=== PATIENT | male | born 1980 | race Caucasian/White ===

== ENCOUNTER → 2020-11-17 09:43 | Outpatient (CLI) | payer OTHER, SELFPAY ==
--- NOTE | ~2020-11-17 | XR_ITS ---
EXAMINATION: XR chest 2V EXAM DATE: 11/17/2020 10:06 INDICATION: R06.00 - Dyspnea X 2 months. TECHNIQUE: Frontal and lateral projections of the chest obtained and reviewed. There is no prior adriana dy for comparison. FINDINGS: The lungs are clear. There are no pleural effusions. The cardiomediastinal silhouette is within normal limits. There is no pneumothorax suspected. The bones and soft tissues are unremarkab le. IMPRESSION: Unremarkable chest x-ray exam. Reviewed, dictated and finalized at location A.
== END ==
PROVIDERS: PCP Family Medicine; Visit Provider Family Medicine
DX: R06.00 Dyspnea, unspecified (principal)
CPT/HCPCS: 71046

== ENCOUNTER 2021-06-08 07:54 | Outpatient (CLI) | payer OTHER, SELFPAY ==
--- NOTE | ~2021-06-08 | NM_ITS ---
EXAMINATION: NM stress w perf spect multi DATE: 06/08/2021 12:01 INDICATION: Dyspnea TECHNIQUE: Rest images were obtained following intravenous administration of 9.84 mCi Tc99m tetrofosm in (Dish.fmview). The patient performed an exercise activity. At peak exercise, 30.4 mCi Tc99m tetrofosmi n (Myoview) was administered intravenously, and stress images were obtained in supine position. Addit ional repeated post stress images were obtained in the prone position. Data was reconstructed into sh ort axis and horizontal and vertical long axis SPECT images. Gated SPECT images were also obtained. COMPARISON: None. FINDINGS: There is normal left ventricular perfusion without definite evidence of reversible or fixed perfusion abnormality to suggest ischemia or infarction. Attenuation artifact on the supine rest and stress im ages primarily along the anterior and anterolateral montemayor and to lesser degree along the inferior wal l normalize on the prone post stress imaging or there are no definite perfusion defects. There is mil d left ventricular enlargement with calculated end-diastolic volume of 178 mL. Normal left ventricula r wall motion with the decreased left ventricular ejection fraction measuring 48%. IMPRESSION: 1. Normal myocardial perfusion at rest and during stress. 2. Mild left ventricular enlargement with mild decreased left ventricular ejection fraction measuring 48%. Reviewed, dictated and finalized at location A. OPHYSIOLOGIST IMPRESSION: 1. Normal myocardial perfusion at rest and during stress. 2. Mild left ventricular enlargement with mild decreased left ventricular eject ion fraction measuring 48%.
--- NOTE | 2021-06-08 08:30 | ECHO_ITS ---
Patient Info Name: Dominic Macdonald Age: 41 years : 1980 Gender: Male Ht: 73 in Wt: 288 lbs BSA: 2.64 m2 HR: 84 bpm BP: 188 / 96 mmHg Technical Quality: Good Exam Date: 06/08/2021 9:05 AM Exam Location: [facility] Patient Status: Outpatient Admit Date: 06/08/2021 Staff Ordering Physician: Jun Wyatt APRN Relay Repairer: Meaghan Casas RDCS Attending Provider: Jun Wyatt APRN Referring Physician: Edmundo HEWITT; Exam Type: CA echo doppler color flow Study Info Indications R06.00 - Dyspnea, unspecified Complete two-dimensional, color flow and Doppler transthoracic echocardiogram is performed. Summary 1. Complete two-dimensional, color flow and Doppler transthoracic echocardiogram is performed. 2. Left ventricular chamber dimension is normal. 3. Left ventricular systolic function is preserved, estimated at 50-55%. 4. The left ventricular diastolic function is normal. 5. E/e' 8 is minimally elevated. 6. Global longitudinal strain is abnormal at -15.6%. 7. No pulmonary hypertension, estimated pulmonary arterial systolic pressure is 24 mmHg. Left Ventricle E/e' 8 is minimally elevated. Global longitudinal strain is abnormal at -15.6%. Left ventricular systolic function is preserved, estimated at 50-55%. Left ventricular chamber dimension is normal. The left ventricular diastolic function is normal. Right Ventricle Right ventricular chamber dimension is not well visualized. Left Atria Left atrial chamber dimension is normal. Right Atria Right atrial chamber dimension is normal. Aortic Valve The aortic valve is trileaflet. There is no aortic valve stenosis. There is no aortic valve regurgitation. Pulmonic Valve There is no pulmonic regurgitation. Mitral Valve There is no mitral valve stenosis. There is no mitral valve regurgitation. Tricuspid Valve There is no tricuspid valve regurgitation. No pulmonary hypertension, estimated pulmonary arterial systolic pressure is 24 mmHg. Pericardium/Pleural There is no pericardial effusion. Inferior Vena Cava Normal inferior vena cava with >50% collapse upon inspiration consistent with normal right atrial pressure, 5 mmHg. Aorta The aortic root size at the sinus of Valsalva is normal. Left Ventricular Outflow Tract Name Value Normal LVOT 2D LVOT Diameter 2.3 cm LVOT Doppler LVOT Peak Gradient 4 mmHg LVOT Mean Gradient 2 mmHg LVOT VTI 18 cm LVOT VTI/AV VTI Ratio 0.8 LVOT Stroke Volume 73 ml LVOT CO 5.5 l/min LVOT CI 2.1 l/min/m2 Pulmonic Valve Name Value Normal RVOT Doppler RVOT Peak Gradient 2 mmHg PV Dop
--- NOTE | 2021-06-08 08:30 | EST_ITS ---
Patient Info Name: Dominic Macdonald Age: 41 years : 1980 Gender: Male Ht: 73 in Wt: 296 lbs BSA: 2.68 m2 HR: 84 bpm BP: 131 / 78 mmHg Heart Rhythm: Sinus Rhythm Exam Date: 06/08/2021 10:54 AM Exam Location: [facility] Patient Status: Outpatient Admit Date: 06/08/2021 Staff Ordering Physician: Jun Wyatt APRN Attending Provider: Jun Wyatt APRN Exercise Technologist: Dalila Guerra CT Exercise Physician: Crow Sánchez DO Exam Type: CA stress test treadmill w NM Study Info Indications R06.02 - Shortness of breath A nuclear stress test was performed. Summary 1. 1. Negative Ryan exercise stress test for ischemic ST changes by ECG criteria. However, patient achieved only 78% MPHR for age group which reduces sensitivity of the test. 2. 2. Reduced functional capacity, achieving 10 METs of workload. 3. 3. Appropriate HR response to exercise. 4. 4. Appropriate HR recovery at 1 minute post exercise. 5. 5. Nuclear scan to follow and will be reported separately. Please correlate with it. 6. 6. Patient informed of the above results. Protocol: Ryan Stress ECG Details Stage: REST Duration (min): 1 min : 59 sec Speed (mph): 0.0 Grade (%): 0 HR (bpm): 82 SBP (mmHg): 131 DBP (mmHg): 78 METS: --- Stage: REST Duration (min): 6 min : 32 sec Speed (mph): 0.0 Grade (%): 0 HR (bpm): 87 SBP (mmHg): 131 DBP (mmHg): 78 METS: --- Stage: STAGE 1 Duration (min): 1 min : 0 sec Speed (mph): 1.7 Grade (%): 10 HR (bpm): 101 SBP (mmHg): 131 DBP (mmHg): 78 METS: --- Stage: STAGE 1 Duration (min): 2 min : 0 sec Speed (mph): 1.7 Grade (%): 10 HR (bpm): 105 SBP (mmHg): 131 DBP (mmHg): 78 METS: --- Stage: STAGE 1 Duration (min): 3 min : 0 sec Speed (mph): 1.7 Grade (%): 10 HR (bpm): 106 SBP (mmHg): 181 DBP (mmHg): 82 METS: --- Stage: STAGE 2 Duration (min): 1 min : 0 sec Speed (mph): 2.5 Grade (%): 12 HR (bpm): 116 SBP (mmHg): 181 DBP (mmHg): 82 METS: --- Stage: STAGE 2 Duration (min): 2 min : 0 sec Speed (mph): 2.5 Grade (%): 12 HR (bpm): 120 SBP (mmHg): 191 DBP (mmHg): 97 METS: --- Stage: STAGE 2 Duration (min): 3 min : 0 sec Speed (mph): 2.5 Grade (%): 12 HR (bpm): 123 SBP (mmHg): 191 DBP (mmHg): 97 METS: --- Stage: STAGE 3 Duration (min): 1 min : 0 sec Speed (mph): 3.4 Grade (%): 14 HR (bpm): 134 SBP (mmHg): 148 DBP (mmHg): 101 METS: --- Stage: STAGE 3 Duration (min): 1 min : 45 sec Speed (mph): 3.4 Grade (%): 14 HR (bpm): 136 SBP (mmHg): 148 DBP (mmHg): 101 METS: --- Stage: RECOVERY Duration (min): 0 min : 14 sec Speed (mph): 0.0 Grade (%): 0 HR (bpm): 138 SBP (mmHg): 148 DBP (mmHg): 101 METS: --- Stage: RECOVERY Duration (min): 1 min : 14 sec S
--- NOTE | 2021-06-11 15:18 | WPDPFTINT ---
PFT Procedure Performed PFT Procedure Performed Spirometry with Pre/Post Bronchodilator Plethysmography (Lung Vol) Diffusing Cap (DLCO) Flow Vol Loop PFT Interpretation This is a pulmonary function test with pre and post-bronchodilator spirometry, plethysmography and diffusing capacity. The test was performed and results interpreted in accordance with the 2019 and 2005 ATS/ERS Task Force guidelines respectively using the Global Lung Function Initiative-2012 reference equations. Patient demonstrated good effort and cooperation. Reproducibility criteria were met. The quality of the pre bronchodilator spirometry maneuver was Grade B and post bronchodilator spirometry maneuver was Grade C. Findings: Spirometry: The contour the inspiratory and expiratory flow tracing are normal. The pre bronchodilator FVC is 5.12 L, 92% predicted. The pre bronchodilator FEV1 is 4.16 L, 94% predicted. The pre bronchodilator FEV1: FVC ratio was 81%. The post bronchodilator FVC is 5.23 L, representing a 2% increase. The post bronchodilator FEV1 is 3.99 L, representing a 4% decrease. The post bronchodilator FEV1: FVC ratio 76%. Plethysmography: The total lung capacity is 7.96 L, 108% predicted. The functional residual capacity is 3.50 L, 94% predicted. The residual volume is 2.85 L, 142% predicted. Diffusing capacity: The diffusing capacity unadjusted for hemoglobin is 35.2, 106% predicted. The diffusing capacity adjusted for alveolar volume is 5.17, 111% predicted. Impression: The spirometry is normal without evidence of an obstructive abnormality. There is no significant improvement after inhaling a single dose of albuterol. The total lung capacity is normal with an increased residual volume. This is an abnormal but nonspecific lung volume pattern. The diffusing capacity is normal. There are no prior studies for comparison
== END 2021-06-08 07:55 | disposition home or self-care (01) ==
PROVIDERS: PCP Family Medicine; Visit Provider Nurse Practitioner Family
DX: R06.00 Dyspnea, unspecified (principal); F17.200 Nicotine dependence, unspecified, uncomplicated; J45.909 Unspecified asthma, uncomplicated; R93.1 Abnormal findings on diagnostic imaging of heart and coronary circulation
CPT/HCPCS: 78452; 93017; 93306; 94060; 94726; 94729; A9502

== ENCOUNTER 2021-09-12 07:17 | Outpatient (CLI) | payer OTHER, SELFPAY ==
[2021-09-13 11:03] LABS: Hematocrit 46.9 % (42.0-52.0); Mean Corpuscular Hemoglobin 30.6 pg (26-34); Mean Corpuscular Volume 95.7 fl (80-100); Mean Platelet Volume 9.1 fl (7.4-10.4); Platelet Count Result 192 k/mm3 (150-375); Red Cell Distribution Width 15.6 % (11.5-14.5); White Blood Count 7.1 K/mm3 (4.5-10.0)
[2021-09-13 14:58] LABS: Alanine Aminotransferase 58 U/L (6-50); Albumin Level 4.7 g/dL (3.5-5.1); Alkaline Phosphatase 53 U/L (38-126); Anion Gap 12 mmol/L (8-16); Aspartate Amino Transferase 54 U/L (17-59); Bilirubin,Total 0.5 mg/dL (0.2-1.3); Blood Urea Nitrogen 17 mg/dL (9-20); Calcium 9.2 mg/dL (8.4-10.2); Carbon Dioxide 22 mmol/L (22-30); Chloride 104 mmol/L (98-107); Cholesterol 195 mg/dL (0-200); Estimated Glomerular Filt Rate > 60; Glucose 113 mg/dL (65-110); HDL Direct 32 mg/dL; Potassium 4.3 mmol/L (3.4-5.0); Sodium 138 mmol/L (137-145); Triglycerides 249 mg/dL (<150)
[2021-09-13 15:29] LABS: LDL Cholesterol Direct 102 mg/dL
[2021-09-13 15:58] LABS: Prostate Specific Antigen 0.5 ng/mL (< OR = 4.0)
[2021-09-17 10:14] LABS: Testosterone Free 295.6 pg/mL (35.0-155.0); Testosterone Total 1023 ng/dL (250-1100)
== END 2021-09-12 07:18 | disposition home or self-care (01) ==
PROVIDERS: PCP Family Medicine; Visit Provider Family Medicine
DX: Z12.5 Encounter for screening for malignant neoplasm of prostate (principal); R06.00 Dyspnea, unspecified; I10 Essential (primary) hypertension; R79.89 Other specified abnormal findings of blood chemistry; Z00.00 Encounter for general adult medical examination without abnormal findings
CPT/HCPCS: 36415; 80053; 80061; 84153; 84402; 84403; 85027; G0103

== ENCOUNTER 2022-01-10 11:54 | Outpatient (CLI) | payer OTHER, SELFPAY ==
--- NOTE | ~2022-01-10 | XR_ITS ---
EXAMINATION: XR shoulder RT min 2V DATE: 01/10/2022 12:07 INDICATION: Right shoulder pain. TECHNIQUE: 4 views of right shoulder were obtained. COMPARISON: None. FINDINGS: Bone alignment is normal. No fracture. The glenohumeral joint is normal. There is mild acro mioclavicular joint osteoarthritis. IMPRESSION: 1. Mild right acromioclavicular joint osteoarthritis. Reviewed, dictated and finalized at location A.
== END 2022-01-10 11:55 | disposition home or self-care (01) ==
LOC: ANHBWCIMG 11:55
PROVIDERS: PCP Family Medicine; Visit Provider Family Medicine
DX: M25.521 Pain in right elbow (principal); M19.011 Primary osteoarthritis, right shoulder
CPT/HCPCS: 73030

== ENCOUNTER 2022-01-16 07:19 | Outpatient (CLI) | payer OTHER, SELFPAY ==
[2022-01-16 18:26] LABS: Appearance Urine Clear (Clear); Bilirubin Urine Negative (Negative); Blood Urine Trace-lysed (Negative); Color Urine Yellow (Yellow); Glucose Urine UA Negative (Negative); Ketones Urine Negative (Negative); Leukocyte Esterase Ur Negative LEU/UL (NEGATIVE); Nitrate Urine Negative (Negative); Protein Urine Negative (Negative); Urobilinogen Urine 0.2 mg/dL (<2.0)
[2022-01-16 18:30] LABS: Basophils Absolute Auto 0.1 K/mm3 (0.0-0.1); Basophils Percent Auto 0.5 % (0.2-1.2); Eosinophils Absolute Auto 0.3 K/mm3 (0-0.3); Eosinophils Percent Auto 3.5 % (0-4.4); Hematocrit 56.1 % (42.0-52.0); Hemoglobin 18.1 g/dL (14.0-18.0); Immature Granulocyte Absolute 0.03 K/mm3 (0.00-0.031); Immature Granulocyte Percent A 0.3 % (0-0.5); Lymphocytes Absolute Auto 3.59 K/mm3 (0.9-3.2); Lymphocytes Percent Auto 38.5 % (18.3-44.2); Mean Corpuscular HGB Conc 32.3 g/dl (32-36); Mean Corpuscular Hemoglobin 29.2 pg (26-34); Mean Corpuscular Volume 90.6 fl (80-100); Mean Platelet Volume 8.9 fl (7.4-10.4); Monocytes Absolute Auto 0.4 K/mm3 (0.1-0.6); Monocytes Percent Auto 4.5 % (2.6-8.5); Neutrophils Absolute Auto 4.9 K/mm3 (1.3-6.7); Neutrophils Percent Auto 52.7 % (45.5-73.1); Platelet Count Result 227 k/mm3 (150-375); Red Blood Count 6.19 M/mm3 (4.6-6.20); Red Cell Distribution Width 14.1 % (11.5-14.5); White Blood Count 9.3 K/mm3 (4.5-10.0)
[2022-01-16 18:33] LABS: Alanine Aminotransferase 51 U/L (6-50); Alkaline Phosphatase 50 U/L (38-126); Aspartate Amino Transferase 112 U/L (17-59); Bilirubin,Total 0.7 mg/dL (0.2-1.3); Cholesterol 178 mg/dL (0-200); HDL Direct 29 mg/dL; Triglycerides 173 mg/dL (<150)
[2022-01-16 18:35] LABS: Hemoglobin A1C 6.1 % (<5.7)
[2022-01-16 18:41] LABS: RBC Urine 0-2 /hpf (0-2); WBC Urine 0-3 /hpf (0-3)
[2022-01-16 18:44] LABS: Add Urine Microscopic? YES
[2022-01-16 18:45] LABS: LDL Cholesterol Direct 99 mg/dL
[2022-01-16 19:37] LABS: Hepatitis B Surface Antigen Negative (Negative)
[2022-01-16 19:42] LABS: HAV RESULT Negative (Negative); Hepatitis B Core IgM Result Negative (Negative)
[2022-01-16 19:54] LABS: Hepatitis C Virus Antibody Negative (Negative)
[2022-01-22 07:56] LABS: Testosterone Free 158.3 pg/mL (35.0-155.0); Testosterone Total 646 ng/dL (250-1100)
== END 2022-01-16 07:20 | disposition home or self-care (01) ==
PROVIDERS: PCP Family Medicine; Visit Provider Family Medicine
DX: E66.9 Obesity, unspecified (principal); G47.30 Sleep apnea, unspecified; R06.00 Dyspnea, unspecified; R74.8 Abnormal levels of other serum enzymes; R73.09 Other abnormal glucose; R74.01 Elevation of levels of liver transaminase levels
CPT/HCPCS: 36415; 80061; 80074; 80076; 81001; 83036; 84402; 84403; 85025

== ENCOUNTER → 2022-01-18 09:48 | Outpatient (CLI) | payer OTHER, SELFPAY ==
--- NOTE | ~2022-01-18 | US_ITS ---
EXAMINATION: US abdomen limited DATE: 01/18/2022 10:08 INDICATION: Abnormal liver function tests. TECHNIQUE: Multiple grayscale and Doppler ultrasound images of the abdomen were obtained. COMPARISON: None FINDINGS: The visualized origins of the head, body, and tail of the pancreas are normal. There is dif fuse hepatic steatosis with focal sparing in the gallbladder fossa. There is normal flow in main port al vein. The gallbladder is normal in size. No gallstones or gallbladder wall thickening. There is no sonographic Mo sign. The common duct is normal and measures 3 mm. IMPRESSION: 1. Diffuse hepatic steatosis. Reviewed, dictated and finalized at location A.
== END ==
PROVIDERS: PCP Family Medicine; Visit Provider Family Medicine
DX: R10.11 Right upper quadrant pain (principal); R74.8 Abnormal levels of other serum enzymes; K76.0 Fatty (change of) liver, not elsewhere classified
CPT/HCPCS: 76705

== ENCOUNTER 2022-04-05 09:31 | Emergency (ER) | payer OTHER, SELFPAY ==
--- NOTE | ~2022-04-05 | XR_ITS ---
EXAMINATION: XR abdomen/kub 1V DATE: 04/05/2022 10:57 INDICATION: Left abdominal pain. TECHNIQUE: A supine view of the abdomen on 2 radiographs was obtained. COMPARISON: None. FINDINGS: There are no dilated loops of bowel. There is a moderate volume of stool in the colon. Ther e are small calcifications in the pelvis. IMPRESSION: 1. Normal bowel gas pattern. 2. Small calcifications in the pelvis, which may be phleboliths. Distal ureteral stone cannot be excl uded. Reviewed, dictated and finalized at location A. ICAL REGISTERED NURSE IMPRESSION: 1. Normal bowel gas pattern. 2. Small calcifications in the pelvis, which may be phleboliths. Distal uretera l stone cannot be excluded.
[2022-04-05 09:37] VITALS: BP 149/65; PULSE 92; RESP 18; TEMP 36.3; O2SAT 97
--- NOTE | 2022-04-05 10:50 | ED.ABDPAIN ---
HPI - Abdominal Pain General Chief Complaint: Urogenital-Male Stated Complaint: left side lower abdo pain Time Seen by Provider: 04/05/22 10:51 Source: patient, RN notes reviewed and old records reviewed Mode of arrival: ambulatory Limitations: no limitations History of Present Illness HPI narrative: 42-year-old male who presents to [facility] with complaints left-sided abdominal pain since Friday of this week with increased symptoms since last night. Patient reports he has pressure feeling and pain as sharp at times and twisting sensation, did have a bowel movement this morning which did seem to help his discomfort.Patient denies any burning with urination, denies any fevers, does take Flomax daily for enlarged prostate. Patient denies any testicle pain. MD elicited complaint: abdominal pain Pain scale (0-10): 6 Treatments prior to arrival: other (none) Related Data Allergies Allergy/AdvReac Type Severity Reaction Status Date / Time No Known Allergies Allergy Verified 04/05/22 10:30 Review of Systems Review of Systems: CONSTITUTIONAL: Denies fever, chills, or sweats. ENT: Denies rhinorrhea, congestion, sore throat, or otalgia. CARDIOVASCULAR: Denies chest pain, palpitations, or edema. RESPIRATORY: Denies cough or dyspnea. GASTROINTESTINAL: Reports left sided abdominal pain, no nausea, vomiting, diarrhea. GENITOURINARY: Denies dysuria or hematuria.no CVA tenderness SKIN: Denies rash or itching. MUSCULOSKELETAL: Denies back pain, joint pain, or myalgia. NEUROLOGIC: Denies headache, numbness, or weakness. All systems reviewed & are unremarkable except as noted in HPI and below PMFSH Past Medical History Medical History Allergies Asthma Hypertension Surgical History Surgical History H/O Achilles tendon repair Family History Family History Father Hypertension Heart problem Mother Hypertension Diabetes mellitus Social History Social History Social History: Smoked age [age], 26 years, 1.5-2ppd; roughly 42-56 pack years. Consumes large amounts of caffeine through coffee, soda, and pre-workout supplements. Around 1000mg/day. Smoking packs per day: 1.75 Smoking cigarettes per day: 35.0 Years smoked: 28 Smoking pack-years: 49.00 Smoking status: Former smoker Tobacco type: cigarettes Smoking end date: 04/13/21 Alcohol intake: current Alcohol use details: rare, 1-2 drinks a year Substance use: never Additional occupation/education comments: [employer], workout instructor. Comments At time of signature, agree with nursing past medical, surgical, social and family history. There is no relevant family history pertinent to the presenting complaint Exam Narrative: GENERAL: Well-appearing, well-nourished, and in no acute distress. HEAD: Normocephalic, atraumatic. EYES: PERRLA, conjunctivae clear, and EOMI. ENT: Nares clear. Mucous membranes moist. Oropharynx without edema, erythema, or lesions. Tonsils not enlarged and without exudate. NECK: Supple. No lymphadenopathy CHEST: Speaks in full sentences. No respiratory distress. HEART: Regular rate and rhythm. ABDOMEN: Soft, flat, nondistended. No guarding, rebound tenderness, or rigid. No pulsatilla masses. Bowel sounds present in all four quadrants. No organomegaly. Negative Mo?s sign. No periumbilical tenderness. No Supra public tenderness or distension, pain to left lower abdominal quadrant. Good femoral pulses bilaterally. No hernia noted. No scars or surface trauma. SKIN: Warm, dry, no rash. NEURO:? Alert and oriented x3. PSYCH: Normal mood and affect Course Course Emergency Course: Patient is aware of diagnosis, understands and agrees to treatment plan.? Anticipatory guidance given.? Patient agrees
--- NOTE | 2022-04-05 12:12 | PC.NURSE ---
NO UC ORDERED PER PROVIDER
== END 2022-04-05 11:53 | disposition short-term general hospital (02) ==
PROVIDERS: Emergency Provider Registered Nurse; PCP Family Medicine
DX: R10.32 Left lower quadrant pain (principal); I10 Essential (primary) hypertension; Z87.891 Personal history of nicotine dependence
CPT/HCPCS: 74018; 81003; 99213; G0463

== ENCOUNTER 2022-04-05 12:21 | Emergency (ER) | payer OTHER, SELFPAY ==
--- NOTE | ~2022-04-05 | CT_ITS ---
EXAMINATION: CT abdomen pelvis w con DATE: 04/05/2022 13:23 INDICATION: Left lower quadrant abdominal pain TECHNIQUE: Computed tomography (CT) of the abdomen and pelvis was performed with 100 CC Omnipaque 350 intravenous contrast. Automated exposure control and iterative reconstruction technique were employe d. Exam dose: 1434.98 mGy-cm total exam DLP. COMPARISON: 04/05/2022 KUB 01/18/2022 Limited abdominal ultrasound examination FINDINGS: The lung bases are clear. Normal heart size. No pericardial or pleural effusion. Diffuse hepatic steatosis. No hepatic, splenic, pancreatic, adrenal or suspicious renal space-occupyi ng mass lesion is evident. Approximately 6.6 mm and 13 mm upper pole left renal probable cysts. No ur inary tract calculus or hydroureteronephrosis. The gallbladder is present. No gallbladder wall thickening or pericholecystic fluid or fat stranding. No bile duct or pancreatic duct dilatation. Normal caliber of the abdominal aorta. No intraperitoneal or retroperitoneal or pelvic mass lesion or adenopathy or ascites. Mild prostate gland calcification. The urinary bladder is unremarkable. Normal appendix. Mild colon diverticulosis; no CT evidence of diverticulitis. No bowel obstruction, b owel wall thickening, pneumatosis or intraperitoneal free air is detected. Severe degenerative disc disease at L5-S1. Bilateral L5 pars interarticularis defects with grade 1 anterolisthesis at L5-S1. Is mild degenerative disc disease with retrolisthesis at L2-3. Mild degenerative spurring of the thor acic spine. IMPRESSION: Mild colon diverticulosis; no CT evidence of diverticulitis or bowel obstruction or free air Normal appendix Hepatic steatosis Left renal cysts Bilateral L5 pars intra-articular is defects, grade 1 anterolisthesis and severe degenerative disc di sease at L5-S1 Reviewed, dictated and finalized at Location A. Reviewed, dictated and finalized at location B. I MEDIA SPECIALIST IMPRESSION: Mild colon diverticulosis; no CT evidence of diverticulitis or bow el obstruction or free air Normal appendix Hepatic steatosis Left renal cysts Bilateral L5 pars intra-articular is defects, grade 1 anterolisthesis and sever e degenerative disc disease at L5-S1
[2022-04-05 12:25] VITALS: BP 172/78; PULSE 88; RESP 18; TEMP 36.4; O2SAT 100
[2022-04-05 12:37] LABS: Basophils Percent Auto 0.3 % (0.2-1.2); Eosinophils Absolute Auto 0.2 K/mm3 (0-0.3); Eosinophils Percent Auto 2.1 % (0-4.4); Hematocrit 53.9 % (42.0-52.0); Hemoglobin 17.6 g/dL (14.0-18.0); Immature Granulocyte Absolute 0.03 K/mm3 (0.00-0.031); Immature Granulocyte Percent A 0.3 % (0-0.5); Lymphocytes Absolute Auto 4.76 K/mm3 (0.9-3.2); Mean Corpuscular HGB Conc 32.7 g/dl (32-36); Mean Corpuscular Hemoglobin 30.2 pg (26-34); Mean Corpuscular Volume 92.5 fl (80-100); Mean Platelet Volume 8.2 fl (7.4-10.4); Monocytes Absolute Auto 0.5 K/mm3 (0.1-0.6); Monocytes Percent Auto 4.5 % (2.6-8.5); Neutrophils Absolute Auto 5.3 K/mm3 (1.3-6.7); Neutrophils Percent Auto 48.8 % (45.5-73.1); Platelet Count Result 194 k/mm3 (150-375); Red Blood Count 5.83 M/mm3 (4.6-6.20); Red Cell Distribution Width 14.1 % (11.5-14.5); White Blood Count 10.8 K/mm3 (4.5-10.0)
[2022-04-05 12:47] LABS: Alanine Aminotransferase 38 U/L (6-50); Albumin Level 4.6 g/dL (3.5-5.1); Alkaline Phosphatase 50 U/L (38-126); Anion Gap 8 mmol/L (8-16); Aspartate Amino Transferase 35 U/L (17-59); Bilirubin,Total 0.5 mg/dL (0.2-1.3); Blood Urea Nitrogen 22 mg/dL (9-20); Carbon Dioxide 28 mmol/L (22-30); Chloride 101 mmol/L (98-107); Estimated CRCL calculation 106 ml/min; Estimated Glomerular Filt Rate > 60; Glucose 113 mg/dL (65-110); Potassium 4.2 mmol/L (3.4-5.0); Sodium 137 mmol/L (137-145)
[2022-04-05 13:06] LABS: Appearance Urine Clear (Clear); Bilirubin Urine Negative (Negative); Blood Urine Negative (Negative); Color Urine Yellow (Yellow); Glucose Urine UA Negative (Negative); Ketones Urine Negative (Negative); Leukocyte Esterase Ur Negative LEU/UL (Negative); Nitrate Urine Negative (Negative); Protein Urine Negative (Negative); Specific Grav Ur 1.025 (1.001-1.035); Urobilinogen Urine 0.2 mg/dL (<2.0)
--- NOTE | 2022-04-05 13:17 | ED.ABDPAIN ---
HPI - Abdominal Pain General Chief Complaint: Abdominal Pain Stated Complaint: left side abdominal pain, sent from clinic Time Seen by Provider: 04/05/22 13:01 History of Present Illness HPI narrative: Patient is a 42-year-old male who presents ER with left lower quadrant abdominal pain. Ongoing for last 2 weeks. No radiation. No urinary frequency urgency or dysuria. Reports he does have enlarged prostate and takes Flomax. He has no diarrhea. No history of diverticulitis or kidney stone. Urgent care x-ray showed pelvic phleboliths that could represent ureteral stone. Patient reports pain is better with bending forward and pushing down. Denies abdominal wall strain from exercise. Related Data Allergies Allergy/AdvReac Type Severity Reaction Status Date / Time No Known Allergies Allergy Verified 04/05/22 10:30 Review of Systems Review of Systems: All systems reviewed & are unremarkable except as noted in HPI and below Constitutional: Constitutional: Denies chills, Denies fatigue and Denies fever(s) Gastrointestinal: Gastrointestinal: Reports abdominal pain, Denies diarrhea, Denies nausea and Denies vomiting Genitourinary: Genitourinary: Denies hematuria, Denies oliguria, Denies dysuria and Denies urinary frequency Musculoskeletal: Musculoskeletal: Denies back pain and Denies myalgias PMFSH Past Medical History Medical History Allergies Asthma Hypertension Surgical History Surgical History H/O Achilles tendon repair Family History Family History Father Hypertension Heart problem Mother Hypertension Diabetes mellitus Social History Social History Social History: Smoked age [age], 26 years, 1.5-2ppd; roughly 42-56 pack years. Consumes large amounts of caffeine through coffee, soda, and pre-workout supplements. Around 1000mg/day. Smoking packs per day: 1.75 Smoking cigarettes per day: 35.0 Years smoked: 28 Smoking pack-years: 49.00 Smoking status: Former smoker Tobacco type: cigarettes Smoking end date: 04/13/21 Alcohol intake: current Alcohol use details: rare, 1-2 drinks a year Substance use: never Additional occupation/education comments: [employer], workout instructor. Exam Narrative: GENERAL: Well-appearing, well-nourished, and in no acute distress. HEAD: Normocephalic, atraumatic. EYES: PERRL and EOMI. CHEST: Clear to auscultation. No respiratory distress. HEART: Regular rate and rhythm. Normal peripheral pulses. ABDOMEN: Soft, nontender, nondistended, no CVA tenderness. EXTREMITIES: Normal range of motion. No edema. SKIN: Warm, dry, no rash. NEURO: Alert and oriented x3. PSYCH: Normal mood and affect. Course Course Emergency Course: Patient may have resolved diverticulitis or epiploic appendagitis. Discharge home with pain control. Recommend follow-up with PCP. Patient verbalized understanding treatment plan. Vital Signs Vital signs: Vital Signs Temperature 97.5 F L 04/05/22 12:25 Pulse Rate 88 04/05/22 12:25 Respiratory Rate 18 04/05/22 12:25 Blood Pressure 172/78 H 04/05/22 12:25 Pulse Oximetry 100 04/05/22 12:25 Oxygen Delivery Room Air 04/05/22 12:25 Temperature 97.5 F L 04/05/22 12:25 Pulse Rate 88 04/05/22 12:25 Respiratory Rate 18 04/05/22 12:25 Blood Pressure 172/78 H 04/05/22 12:25 Pulse Oximetry 100 04/05/22 12:25 Oxygen Delivery Room Air 04/05/22 12:25 MDM - Abdominal Pain Lab Data 04/05/22 12:31 04/05/22 12:31 Labs: Lab Results 04/05/22 04/05/22 04/05/22 Range/Units 12:31 12:31 12:59 WBC 10.8 H (4.5-10.0) K/mm3 RBC 5.83 (4.6-6.20) M/mm3 Hgb 17.6 (14.0-18.0) g/dL Hct 53.9 H (42.0-52.0) % MCV 92.5 (80-100) fl MCH
[2022-04-05 13:51] LABS: Add Urine Microscopic? NO
== END 2022-04-05 14:20 | disposition home or self-care (01) ==
PROVIDERS: Emergency Provider Emergency Medicine; PCP Family Medicine
DX: R10.32 Left lower quadrant pain (principal); J45.909 Unspecified asthma, uncomplicated; I10 Essential (primary) hypertension; Z87.891 Personal history of nicotine dependence; K57.90 Diverticulosis of intestine, part unspecified, without perforation or abscess without bleeding; K76.0 Fatty (change of) liver, not elsewhere classified; N28.1 Cyst of kidney, acquired; M51.37 Other intervertebral disc degeneration, lumbosacral region
CPT/HCPCS: 36415; 74018; 74177; 80053; 81003; 85025; 99284; Q9967

== ENCOUNTER 2022-04-19 07:15 | Outpatient (CLI) | payer OTHER, SELFPAY ==
[2022-04-19 20:20] LABS: Hemoglobin A1C 6.2 % (<5.7)
[2022-04-23 06:02] LABS: Thyroid Peroxidase Antibodies 203 IU/mL (<9)
== END 2022-04-19 07:16 | disposition home or self-care (01) ==
LOC: ANHBWCLAB 07:16
PROVIDERS: PCP Family Medicine; Visit Provider Family Medicine
DX: R73.03 Prediabetes (principal); R79.89 Other specified abnormal findings of blood chemistry
CPT/HCPCS: 36415; 83036; 86376

== ENCOUNTER 2022-07-18 09:49 | Emergency (ER) | payer OTHER, SELFPAY ==
--- NOTE | ~2022-07-18 | XR_ITS ---
Clinical Indication: Shortness of breath PA and lateral views of the chest: Comparison: 11/17/2020 Findings: The lungs are clear, without evidence of focal consolidation or pleural effusion. Cardiome diastinal silhouette is within normal limits. Bones and soft tissues are unremarkable. Impression: Normal chest. Reviewed, dictated and finalized at location . Impression: Normal chest.
[2022-07-18 09:54] VITALS: BP 146/75; PULSE 94; RESP 20; TEMP 36.5; O2SAT 97
--- NOTE | 2022-07-18 09:59 | ED.GENADULT ---
HPI - General Adult General Chief complaint: Upper Respiratory Infection Stated complaint: tightness/pain in chest Source: patient and RN notes reviewed History of Present Illness HPI narrative: 42-year-old male presents urgent care with complaints of intermittent chest tightness and shortness of breath. Pt states these symptoms have been going on x approximately 2 years. Pt states the symptoms got worse after having Covid the summer of 2020. Pt states his symptoms are significantly exacerbated after any kind of exertion. Pt states after exertion, he feels like he is drowning b/c he can't catch his breath. Pt denies any fevers, chills, and dizziness, or vomiting. Patient states he has seen his primary care physician for this and has been placed on steroids, antibiotics, inhalers without any relief. Patient just finished a course of Augmentin recently. Pt has had a full cardiac workup 1 year ago without any findings. Pt does state his father at the age of 43 and had a triple bypass as well. Pt denies any chest pain or SOB at this time but states it feels like there is strange feeling intermittently while at rest. Denies palpitations or fluttering. Pt states the only time he doesn't have symptoms is when he wearing his C-PAP machine. Related Data Allergies Allergy/AdvReac Type Severity Reaction Status Date / Time No Known Allergies Allergy Verified 04/18/22 07:20 Review of Systems Review of Systems: CONSTITUTIONAL: Denies fever, chills, or sweats. EYES: Denies visual changes, redness, or discharge. ENT: Denies otalgia and sore throat CARDIOVASCULAR: chest tightness intermittently RESPIRATORY: dyspnea on exertion. GASTROINTESTINAL: Denies abdominal pain, nausea, vomiting, or diarrhea. GENITOURINARY: Denies dysuria or hematuria. SKIN: Denies rash or itching. MUSCULOSKELETAL: Denies back pain, joint pain, or myalgia. NEUROLOGIC: Denies headache, numbness, or weakness. FORMERLY [facility], 1928–1983 Past Medical History Medical History (Updated 07/18/22 @ 10:50 by Sharon Zarate APRN) Allergies Asthma Hypertension Surgical History Surgical History H/O Achilles tendon repair Family History Family History Father Hypertension Heart problem Mother Hypertension Diabetes mellitus Social History Social History (Updated 04/18/22 @ 07:14 by Gabriela Caputo MA) Social History: Smoked age [age], 26 years, 1.5-2ppd; roughly 42-56 pack years. Consumes large amounts of caffeine through coffee, soda, and pre-workout supplements. Around 1000mg/day. Smoking packs per day: 1.75 Smoking cigarettes per day: 35.0 Years smoked: 28 Smoking pack-years: 49.00 Smoking status: Former smoker Tobacco type: cigarettes Smoking end date: 04/13/21 Alcohol intake: current Alcohol use details: rare, 1-2 drinks a year Substance use: never Lack of Transportation: No Lack of Food: Never True Current Housing: I Have Housing Concerned About Future Housing: No Difficulty Paying Gas/Electric Bills: No Difficulty Paying for Meds: No Currently Unemployed: No Education: Master's Degree or Higher Difficulty w/ Childcare or Family Care: No Occupation/Education: occupation Additional occupation/education comments: [employer], workout instructor. Comments At the time of my signature, I reviewed and agree with the nursing past medical, surgical, social, and family history. There is no relevant family history pertinent to the patient complaint. Exam Narrative: GENERAL: This is a well-nourished, well-developed patient, in no apparent distress. HEAD: normocephalic, atraumatic. EYES: Sclera clear/white. Vision is grossly intact. EARS: External ears normal, auditory canals clear and without drainage. Hearing grossly intact. NOSE: External nose normal with no obvious nasal discharge, nares without redness, no rhi
[2022-07-18 10:00] VITALS: BP 146/75; PULSE 94; RESP 20; TEMP 36.5; O2SAT 97
--- NOTE | 2022-07-18 10:09 | ECG_ITS ---
Measurements Intervals [place] Rate: 83 P: 66 VA: 144 QRS: 60 QRSD: 106 T: 42 QT: 323 QTc: 381 Interpretive Statements SINUS RHYTHM VENTRICULAR PREMATURE COMPLEXES BORDERLINE ECG NO PREVIOUS ECG AVAILABLE FOR COMPARISON Electronically Signed On 07-18-2022 12:28:42 CDT by Crow Sánchez D.O.
== END 2022-07-18 10:57 | disposition home or self-care (01) ==
PROVIDERS: Emergency Provider Nurse Practitioner Family; PCP Family Medicine
DX: R06.09 Other forms of dyspnea (principal); Z87.891 Personal history of nicotine dependence; J45.909 Unspecified asthma, uncomplicated; I10 Essential (primary) hypertension
CPT/HCPCS: 71046; 93005; 99213; G0463

== ENCOUNTER 2022-10-21 09:12 | Outpatient (CLI) | payer OTHER, SELFPAY ==
[2022-10-21 19:24] LABS: Alanine Aminotransferase 34 U/L (6-50); Albumin Level 4.5 g/dL (3.5-5.1); Alkaline Phosphatase 48 U/L (38-126); Anion Gap 8 mmol/L (8-16); Aspartate Amino Transferase 70 U/L (17-59); Bilirubin,Total 0.7 mg/dL (0.2-1.3); Blood Urea Nitrogen 14 mg/dL (9-20); Calcium 8.8 mg/dL (8.4-10.2); Carbon Dioxide 23 mmol/L (22-30); Chloride 104 mmol/L (98-107); Estimated Glomerular Filt Rate > 60; Glucose 111 mg/dL (65-110); Potassium 4.1 mmol/L (3.4-5.0); Sodium 135 mmol/L (137-145)
[2022-10-25 05:46] LABS: Triiodothyronine T3 Free 3.5 pg/mL (2.3-4.2)
== END 2022-10-21 09:13 | disposition home or self-care (01) ==
LOC: ANHBWCLAB 09:13
PROVIDERS: PCP Family Medicine; Visit Provider Nurse Practitioner Adult Health
DX: R94.6 Abnormal results of thyroid function studies (principal); Z13.29 Encounter for screening for other suspected endocrine disorder
CPT/HCPCS: 36415; 80053; 84436; 84443; 84481

== ENCOUNTER 2022-12-09 08:56 | Outpatient (CLI) | payer OTHER, SELFPAY ==
--- NOTE | ~2022-12-09 | US_ITS ---
EXAMINATION: US scrotum doppler DATE: 12/09/2022 09:33 INDICATION: Right testicular pain. TECHNIQUE: Grayscale and Doppler ultrasound images of the testes were obtained. COMPARISON: None. FINDINGS: The right testis measures 3.9 x 3.6 x 1.8 cm. The left testis measures 3.2 x 2.6 x 2.2 cm. There is normal vascular flow to both testes. The right epididymis is normal with normal vascular breana w. The left epididymis is normal with normal vascular flow. There is a moderate-sized left hydrocele. There are bilateral varicoceles. IMPRESSION: 1. Moderate-sized left hydrocele. 2. Bilateral varicoceles. Reviewed, dictated and finalized at location A.
== END 2022-12-09 08:57 | disposition home or self-care (01) ==
PROVIDERS: PCP Family Medicine; Visit Provider Family Medicine
DX: N50.819 Testicular pain, unspecified (principal); I86.1 Scrotal varices; N43.3 Hydrocele, unspecified
CPT/HCPCS: 76870; 93976

== ENCOUNTER 2024-01-06 09:01 | Emergency (ER) | payer OTHER, SELFPAY ==
[2024-01-06 09:23] VITALS: BP 144/79; PULSE 91; RESP 16; TEMP 36.3; O2SAT 98
--- NOTE | 2024-01-06 09:34 | ED.URI ---
HPI - URI/Sore Throat General Chief Complaint: Upper Respiratory Infection Stated Complaint: +covid, needs COVID test /work note for work Time Seen by Provider: 01/06/24 09:34 Source: patient and RN notes reviewed Mode of arrival: ambulatory Limitations: no limitations History of Present Illness HPI Narrative: 43 Year old year old male presents with concern for positive at home COVID test and returning to work. Reports he started having symptoms yesterday and has a positive yesterday. Reports he has been taking Coricidin HBP. He reports sore throat, runny nose. MD elicited complaint: sore throat Related Data Allergies Allergy/AdvReac Type Severity Reaction Status Date / Time No Known Allergies Allergy Verified 01/06/24 09:03 Review of Systems Review of Systems: CONSTITUTIONAL: Denies malaise, chills, sweats, or fever. EYES: Denies visual changes, redness, or discharge. ENT: Reports rhinorrhea, congestion, sore throat CARDIOVASCULAR: Denies chest pain, palpitations, or edema. RESPIRATORY: Denies cough. Denies dyspnea. GASTROINTESTINAL: Denies abdominal pain, nausea, vomiting, diarrhea SKIN: Denies rash or itching. MUSCULOSKELETAL: Denies myalgia. NEUROLOGIC: Denies headache. All systems reviewed & are unremarkable except as noted in HPI and below PMFSH Past Medical History Medical History Allergies Asthma Hypertension Surgical History Surgical History H/O Achilles tendon repair Family History Family History Father Hypertension Heart problem Mother Hypertension Diabetes mellitus Social History Social History (Updated 12/09/22 @ 07:33 by DANIELLE Anand) Social History: Smoked age [age], 26 years, 1.5-2ppd; roughly 42-56 pack years. Consumes large amounts of caffeine through coffee, soda, and pre-workout supplements. Around 1000mg/day. Smoking packs per day: 1.75 Smoking cigarettes per day: 35.0 Years smoked: 28 Smoking pack-years: 49.00 Smoking status: Current some day smoker Tobacco type: cigarettes Smoking end date: 04/13/21 Alcohol intake: current Alcohol use details: rare, 1-2 drinks a year Substance use: never Lack of Transportation: YES Lack of Food: Never True Current Housing: I Have Housing Concerned About Future Housing: No Difficulty Paying Gas/Electric Bills: No Difficulty Paying for Meds: No Currently Unemployed: No Education: Master's Degree or Higher Difficulty w/ Childcare or Family Care: No Occupation/Education: occupation Additional occupation/education comments: [employer], workout instructor. Comments At time of signature, agree with nursing past medical, surgical, social and family history. There is no relevant family history pertinent to the presenting complaint Exam Narrative: GENERAL: Well-appearing, well-nourished, and in no acute distress. HEAD: Normocephalic EYES: PERRLA, conjunctivae clear ENT: Nares clear, turbinates edematous and erythematous, clear discharge. Mucous membranes moist. TM pearly edwards with dull light reflex bilaterally; no tragal tenderness. Oropharynx not erythematous without lesions. Tonsils not enlarged and without exudate, no drooling, no hoarseness, no trismus, uvula midline. NECK: Supple. No lymphadenopathy CHEST: Clear to auscultation, breath sounds equal. No wheezing, rhonchi, rales, or stridor. No respiratory distress, speaks in full sentences. HEART: Regular rate and rhythm. No murmur heard. SKIN: Warm, dry, no rash. NEURO: Alert and oriented x3. PSYCH: Normal mood and affect Course Course Emergency Course: Patient is aware of diagnosis, understands and agrees to treatment plan. Anticipatory guidance given. Patient agrees to follow-up as directed and is aware of reasons to seek care at the emergency de
== END 2024-01-06 09:42 | disposition home or self-care (01) ==
PROVIDERS: Emergency Provider Nurse Practitioner
DX: U07.1 COVID-19 (principal); J45.909 Unspecified asthma, uncomplicated; I10 Essential (primary) hypertension; Z87.891 Personal history of nicotine dependence
CPT/HCPCS: 87426; 99213; G0463